=== PATIENT | female | born 1930 | race Caucasian/White ===

== ENCOUNTER → 2017-09-26 | Outpatient (CLI) | payer MEDICARE, OTHER | END | disposition home or self-care (01) | LOC: Rad HDHVI 12:11 | PROVIDERS: ATTEND Internal Medicine Cardiovascular Disease | DX: M40.209 Unspecified kyphosis, site unspecified (principal); M85.80 Other specified disorders of bone density and structure, unspecified site | CPT/HCPCS: 71046 ==